=== PATIENT | female | born 1975 | race Caucasian/White ===

== ENCOUNTER 2021-09-13 10:36 | Inpatient (IN) ==
[2021-09-13 11:54] LABS: Basophils % 0.7 %; Eosinophils # 0.1 K/mcL (0.0-0.6); Hematocrit 45.6 % (35.3-44.9); Immature Granulocytes % 0.2 % (0-4); Lymphocytes # 1.5 K/mcL (0.6-4.6); Lymphocytes % 24.8 %; Mean Corpuscular HGB Conc 32.9 g/dL (31.6-35.5); Mean Corpuscular Volume 88.2 fL (83.0-100.0); Mean Platelet Volume 10.1 fL (9.4-12.4); Monocytes # 0.5 K/mcL (0.0-1.3); Platelet Count 224 K/mcL (140-400); Red Blood Count 5.17 M/mcL (3.82-4.97); Red Cell Distribution Width 12.5 % (11.5-14.5); Segmented Neutrophils % 65.3 %; White Blood Count 6.1 K/mcL (4.3-11.1)
[2021-09-13 12:00] LABS: Bilirubin,Urine Negative (Negative); Blood,Urine Negative (Negative); Clarity,Urine Clear (Clear); Color,Urine Colorless (Yellow); Glucose,Urine (UA) Normal (Normal); Ketones,Urine Negative (Negative); Leukocyte Esterase,Urine Negative (Negative); Nitrite,Urine Negative (Negative); Protein,Urine Negative (Neg-Trace); Specific Gravity,Urine 1.005 (1.010-1.025); Urobilinogen,Urine Normal (Normal)
[2021-09-13 12:02] LABS: Acetaminophen < 10 mcg/mL (10-20); Blood Urea Nitrogen 13 mg/dL (6-20); Calcium 9.3 mg/dL (8.6-10.3); Carbon Dioxide 29 mEq/L (23-29); Chloride 106 mEq/L (98-107); Ethanol < 10 mg/dL (Less than 10); Glucose 95 mg/dL (70-105); Osmolality,Calculated 288 (280-300); Potassium 4.5 mEq/L (3.5-5.1); Salicylate < 2.5 mg/dL (15.0-30.0); Sodium 139 mEq/L (136-145)
[2021-09-13 12:09] LABS: BUN/Creatinine Ratio 17 (6-26); eGFR For African Americans > 60 (> 60); eGFR For Non-African Americans > 60 (> 60)
[2021-09-13 12:11] LABS: Amphetamine Screen,Urine Negative ng/mL (Cutoff=1000); Barbiturate Screen,Urine Negative ng/mL (Cutoff=200); Benzodiazepines Screen,Urine Negative ng/mL (Cutoff=200); Cannabinoid Screen,Urine Positive ng/mL (Cutoff = 50); Cocaine Screen,Urine Negative ng/mL (Cutoff= 300); Opiate Screen,Urine Negative ng/mL (Cutoff=300); Phencyclidine Screen,Urine Negative ng/mL (Cutoff=25)
[2021-09-13 14:06] LABS: Influenza A PCR Negative (Negative); Influenza B PCR Negative (Negative); Resp. Syncytial Virus PCR Negative (Negative)
[2021-09-13] MEDS ORDERED: Acetaminophen 325 MG TABLET PO PRN (14:21)
[2021-09-13] MEDS ORDERED: haloperidoL 5 MG TABLET PO PRN (14:21)
[2021-09-13] MEDS ORDERED: *HR* LORazepam 2 MG/ML VIAL IM PRN (14:21)
[2021-09-13] MEDS ORDERED: *HR* LORazepam 1 MG TABLET PO PRN (14:21)
[2021-09-13] MEDS ORDERED: Ibuprofen 400 MG TABLET PO PRN (14:21)
[2021-09-13] MEDS ORDERED: Haloperidol Lactate 5 MG/ML VIAL IM PRN (14:21)
[2021-09-13 14:39] LABS: SARS-CoV-2 by PCR (In House) Negative (Negative)
[2021-09-13] MEDS: hydrOXYzine pamoate 25 MG CAPSULE PO PRN (19:55)
[2021-09-13] MEDS: traZODone 50 MG TABLET PO PRN (19:55)
[2021-09-14] MEDS: clonazePAM 0.5 MG TABLET PO PRN (08:49)
[2021-09-14] MEDS ORDERED: Mag Hydrox/Al Hydrox/Simeth 30 ML UDC PO PRN (11:15)
[2021-09-14] MEDS ORDERED: MOM Conc 10 ML UD.LIQ PO PRN (11:15)
[2021-09-14] MEDS: hydrOXYzine pamoate 25 MG CAPSULE PO PRN ×2 (12:30→20:40)
[2021-09-14] MEDS: traZODone 50 MG TABLET PO PRN (20:41)
[2021-09-15] MEDS: clonazePAM 0.5 MG TABLET PO PRN (08:22)
[2021-09-15 09:48] VITALS: BP 115/79; PULSE 72; TEMP 97.8; O2SAT 98
== END 2021-09-15 14:45 | disposition home or self-care (01) | DRG 885 ==
LOC: EMEROOARM 10:36 → 1ANU 15:30
PROVIDERS: ADMIT Psychiatry & Neurology Psychiatry; ATTEND Psychiatry & Neurology Psychiatry

== ENCOUNTER 2022-01-17 17:12 | Inpatient (IN) ==
[2022-01-17 17:55] LABS: Bilirubin,Urine Negative (Negative); Blood,Urine Negative (Negative); Clarity,Urine Clear (Clear); Color,Urine Colorless (Yellow); Glucose,Urine (UA) Normal (Normal); Ketones,Urine Negative (Negative); Leukocyte Esterase,Urine Negative (Negative); Nitrite,Urine Negative (Negative); Protein,Urine Negative (Neg-Trace); Specific Gravity,Urine 1.005 (1.010-1.025); Urobilinogen,Urine Normal (Normal)
[2022-01-17 18:00] LABS: Basophils % 0.7 %; Eosinophils # 0.1 K/mcL (0.0-0.6); Eosinophils % 1.6 %; Hemoglobin 14.8 g/dL (11.5-15.4); Immature Granulocytes % 0.2 % (0-4); Lymphocytes # 1.5 K/mcL (0.6-4.6); Lymphocytes % 23.8 %; Mean Corpuscular HGB Conc 33.6 g/dL (31.6-35.5); Mean Corpuscular Hemoglobin 30.5 pg (28.0-33.3); Mean Corpuscular Volume 90.5 fL (83.0-100.0); Mean Platelet Volume 10.1 fL (9.4-12.4); Monocytes # 0.5 K/mcL (0.0-1.3); Monocytes % 8.9 %; Platelet Count 240 K/mcL (140-400); Red Blood Count 4.86 M/mcL (3.82-4.97); Red Cell Distribution Width 12.3 % (11.5-14.5); Segmented Neutrophils % 64.8 %; White Blood Count 6.1 K/mcL (4.3-11.1)
[2022-01-17 18:02] LABS: Amphetamine Screen,Urine Negative ng/mL (Cutoff=1000); Barbiturate Screen,Urine Negative ng/mL (Cutoff=200); Benzodiazepines Screen,Urine Negative ng/mL (Cutoff=200); Cannabinoid Screen,Urine Positive ng/mL (Cutoff = 50); Cocaine Screen,Urine Negative ng/mL (Cutoff= 300); Opiate Screen,Urine Negative ng/mL (Cutoff=300); Phencyclidine Screen,Urine Negative ng/mL (Cutoff=25)
[2022-01-17 18:08] LABS: Acetaminophen < 10 mcg/mL (10-20); BUN/Creatinine Ratio 17 (6-26); Blood Urea Nitrogen 11 mg/dL (6-20); Calcium 8.9 mg/dL (8.6-10.3); Carbon Dioxide 28 mEq/L (23-29); Chloride 105 mEq/L (98-107); Estimated Average Glucose 80 mg/dl; Ethanol < 10 mg/dL (Less than 10); Glucose 88 mg/dL (70-105); Hemoglobin A1C 4.4 %; Osmolality,Calculated 285 (280-300); Potassium 3.8 mEq/L (3.5-5.1); Salicylate < 2.5 mg/dL (15.0-30.0); Sodium 138 mEq/L (136-145); eGFR For African Americans > 60 (> 60); eGFR For Non-African Americans > 60 (> 60)
[2022-01-17 22:25] LABS: Influenza A PCR Negative (Negative); Influenza B PCR Negative (Negative); Resp. Syncytial Virus PCR Negative (Negative)
[2022-01-17 22:51] LABS: SARS-CoV-2 by PCR (In House) Negative (Negative)
[2022-01-18] MEDS ORDERED: haloperidoL 5 MG TABLET PO PRN (00:01)
[2022-01-18] MEDS ORDERED: Acetaminophen 325 MG TABLET PO PRN (00:01)
[2022-01-18] MEDS ORDERED: Haloperidol Lactate 5 MG/ML VIAL IM PRN (00:01)
[2022-01-18] MEDS ORDERED: hydrOXYzine pamoate 25 MG CAPSULE PO PRN (00:01)
[2022-01-18] MEDS ORDERED: *HR* LORazepam 2 MG/ML VIAL IM PRN (00:01)
[2022-01-18] MEDS ORDERED: *HR* LORazepam 1 MG TABLET PO PRN (00:01)
[2022-01-18] MEDS ORDERED: traZODone 50 MG TABLET PO PRN (00:01)
[2022-01-18] MEDS ORDERED: MOM Conc 10 ML UD.LIQ PO PRN (08:06)
[2022-01-18] MEDS ORDERED: Mag Hydrox/Al Hydrox/Simeth 30 ML UDC PO PRN (08:06)
[2022-01-18] MEDS ORDERED: traZODone 50 MG TABLET PO SCH (21:00)
[2022-01-19 08:41] VITALS: BP 144/80; PULSE 84; TEMP 97.4; O2SAT 98
== END 2022-01-19 14:09 | disposition home or self-care (01) | DRG 885 ==
LOC: 1ANU 17:12 → EMEROOARM 17:12 → 1ANU 01-18 01:05
PROVIDERS: ADMIT Psychiatry & Neurology Psychiatry; ATTEND Psychiatry & Neurology Psychiatry

== ENCOUNTER 2022-06-13 11:04 | Inpatient (IN) ==
[2022-06-13 11:52] LABS: Basophils # 0.1 K/mcL (0.0-0.2); Basophils % 0.7 %; Eosinophils # 0.1 K/mcL (0.0-0.6); Eosinophils % 0.8 %; Hematocrit 40.2 % (35.3-44.9); Hemoglobin 13.8 g/dL (11.5-15.4); Immature Granulocytes % 0.3 % (0-4); Lymphocytes # 1.5 K/mcL (0.6-4.6); Lymphocytes % 17.1 %; Mean Corpuscular HGB Conc 34.3 g/dL (31.6-35.5); Mean Corpuscular Hemoglobin 29.9 pg (28.0-33.3); Mean Corpuscular Volume 87.2 fL (83.0-100.0); Mean Platelet Volume 9.8 fL (9.4-12.4); Monocytes # 0.6 K/mcL (0.0-1.3); Monocytes % 6.9 %; Neutrophils # 6.7 K/mcL (1.6-8.9); Platelet Count 239 K/mcL (140-400); Red Blood Count 4.61 M/mcL (3.82-4.97); Segmented Neutrophils % 74.2 %
[2022-06-13 12:02] LABS: Bilirubin,Urine Negative (Negative); Blood,Urine Negative (Negative); Clarity,Urine Clear (Clear); Color,Urine Colorless (Yellow); Glucose,Urine (UA) Normal (Normal); Ketones,Urine Negative (Negative); Leukocyte Esterase,Urine Negative (Negative); Nitrite,Urine Negative (Negative); PH,Urine 6.5 pH Units (5.0-8.0); Protein,Urine Negative (Neg-Trace); Specific Gravity,Urine 1.005 (1.010-1.025); Urobilinogen,Urine Normal (Normal)
[2022-06-13 12:11] LABS: Amphetamine Screen,Urine Negative ng/mL (Cutoff=1000); Barbiturate Screen,Urine Negative ng/mL (Cutoff=200); Benzodiazepines Screen,Urine Negative ng/mL (Cutoff=200); Cannabinoid Screen,Urine Positive ng/mL (Cutoff = 50); Cocaine Screen,Urine Negative ng/mL (Cutoff= 300); Opiate Screen,Urine Negative ng/mL (Cutoff=300); Phencyclidine Screen,Urine Negative ng/mL (Cutoff=25)
[2022-06-13 12:13] LABS: Acetaminophen < 10 mcg/mL (10-20); BUN/Creatinine Ratio 17 (6-26); Blood Urea Nitrogen 10 mg/dL (6-20); Calcium 8.7 mg/dL (8.6-10.3); Carbon Dioxide 26 mEq/L (23-29); Chloride 104 mEq/L (98-107); Chol/HDL Ratio 1.8 (0-4.9); Cholesterol 179 mg/dL (< 200); Ethanol < 10 mg/dL (Less than 10); Glucose 88 mg/dL (70-105); HDL Cholesterol 99 mg/dL (40-59); LDL Cholesterol,Calculated 70 mg/dL (< 100); Osmolality,Calculated 280 (280-300); Potassium 3.6 mEq/L (3.5-5.1); Salicylate < 2.5 mg/dL (15.0-30.0); Sodium 136 mEq/L (136-145); Triglycerides 50 mg/dL (< 150)
[2022-06-13 12:24] LABS: Estimated Average Glucose 88 mg/dl; Hemoglobin A1C 4.7 %
[2022-06-13] MEDS ORDERED: QUEtiapine Fumarate 25 MG TABLET PO PRN (13:46)
[2022-06-13] MEDS ORDERED: *HR* LORazepam 2 MG/ML VIAL IM PRN (13:46)
[2022-06-13] MEDS ORDERED: MOM Conc 10 ML UD.LIQ PO PRN (13:46)
[2022-06-13] MEDS ORDERED: Acetaminophen 325 MG TABLET PO PRN (13:46)
[2022-06-13] MEDS ORDERED: Mag Hydrox/Al Hydrox/Simeth 30 ML UDC PO PRN (13:46)
[2022-06-13] MEDS ORDERED: haloperidoL 5 MG TABLET PO PRN (13:46)
[2022-06-13] MEDS ORDERED: Haloperidol Lactate 5 MG/ML VIAL IM PRN (13:46)
[2022-06-13 14:47] LABS: Influenza A PCR Negative (Negative); Influenza B PCR Negative (Negative); Resp. Syncytial Virus PCR Negative (Negative)
[2022-06-13 14:53] LABS: SARS-CoV-2 by PCR (In House) Negative (Negative)
[2022-06-13] MEDS: hydrOXYzine pamoate 25 MG CAPSULE PO PRN (16:09)
[2022-06-13] MEDS: *HR* LORazepam 1 MG TABLET PO PRN (17:02)
[2022-06-13] MEDS: traZODone 50 MG TABLET PO SCH (21:58)
[2022-06-14] MEDS: hydrOXYzine pamoate 25 MG CAPSULE PO PRN ×2 (03:35→12:44)
[2022-06-14] MEDS: *HR* LORazepam 1 MG TABLET PO PRN (06:01)
[2022-06-14] MEDS: Multivit/Ca/Min/Fe/FA 1 TAB TABLET PO SCH (12:43)
[2022-06-14] MEDS: Lactobacillus 1 EACH CAP.SPRINK PO SCH (12:44)
[2022-06-14] MEDS ORDERED: BuPROPion XL (24 HR) 150 MG TABLET PO SCH (13:00)
[2022-06-14] MEDS: Thiamine (B-1) 100 MG TABLET PO SCH (13:23)
[2022-06-14] MEDS: Folic Acid 1 MG TABLET PO SCH (13:25)
[2022-06-14] MEDS ORDERED: ARIPiprazole 2 MG TABLET PO SCH (21:00)
[2022-06-14] MEDS: traZODone 50 MG TABLET PO SCH (21:21)
[2022-06-15] MEDS: hydrOXYzine pamoate 25 MG CAPSULE PO PRN ×2 (00:14→09:19)
[2022-06-15] MEDS ORDERED: traZODone 50 MG TABLET PO ONE (02:52)
[2022-06-15] MEDS: Thiamine (B-1) 100 MG TABLET PO SCH (09:19)
[2022-06-15] MEDS: Multivit/Ca/Min/Fe/FA 1 TAB TABLET PO SCH (09:20)
[2022-06-15] MEDS: Folic Acid 1 MG TABLET PO SCH (09:20)
[2022-06-15] MEDS: Lactobacillus 1 EACH CAP.SPRINK PO SCH (09:20)
[2022-06-15] MEDS ORDERED: *HR* LORazepam 1 MG TABLET PO PRN ×2 (10:37)
[2022-06-15] MEDS: *HR* LORazepam 1 MG TABLET PO PRN ×2 (11:03→23:33)
[2022-06-15] MEDS: traZODone 50 MG TABLET PO SCH (20:54)
[2022-06-15] MEDS ORDERED: ARIPiprazole 5 MG TABLET PO SCH (21:00)
[2022-06-15 21:04] VITALS: TEMP 98.1
[2022-06-15 23:30] VITALS: BP 163/122; PULSE 69; O2SAT 99
[2022-06-16] MEDS ORDERED: cloNIDine HCL 0.1 MG TABLET PO ONE
== END 2022-06-16 01:55 | disposition other institution (70) | DRG 885 ==
LOC: EMEROOARM 11:04 → 1ANU 15:30
PROVIDERS: ADMIT Psychiatry & Neurology Psychiatry; ATTEND Psychiatry & Neurology Psychiatry

== ENCOUNTER 2022-06-16 00:37 | Observation (INO) ==
[2022-06-16] MEDS ORDERED: Ondansetron ODT 4 MG TAB.RAPDIS SL PRN (02:34)
[2022-06-16] MEDS ORDERED: Melatonin 3 MG TABLET PO PRN (02:34)
[2022-06-16] MEDS ORDERED: Naloxone 0.4 MG/ML INJ IVP PRN (02:34)
[2022-06-16] MEDS ORDERED: *HR* LORazepam 1 MG TABLET PO PRN ×3 (03:14)
[2022-06-16 03:16] LABS: Basophils % 0.5 %; Eosinophils # 0.1 K/mcL (0.0-0.6); Eosinophils % 1.2 %; Hematocrit 42.6 % (35.3-44.9); Hemoglobin 14.6 g/dL (11.5-15.4); Immature Granulocytes % 0.3 % (0-4); Lymphocytes # 1.4 K/mcL (0.6-4.6); Lymphocytes % 18.3 %; Mean Corpuscular HGB Conc 34.3 g/dL (31.6-35.5); Mean Corpuscular Hemoglobin 29.7 pg (28.0-33.3); Mean Corpuscular Volume 86.8 fL (83.0-100.0); Mean Platelet Volume 10.3 fL (9.4-12.4); Monocytes # 0.7 K/mcL (0.0-1.3); Monocytes % 8.9 %; Neutrophils # 5.5 K/mcL (1.6-8.9); Platelet Count 246 K/mcL (140-400); Red Blood Count 4.91 M/mcL (3.82-4.97); Red Cell Distribution Width 12.6 % (11.5-14.5); Segmented Neutrophils % 70.8 %; White Blood Count 7.8 K/mcL (4.3-11.1)
[2022-06-16] MEDS ORDERED: hydrALAZINE 10 MG TABLET PO PRN (03:32)
[2022-06-16 03:46] LABS: Alanine Aminotransferase 15 Units/L (7-52); Albumin 3.9 g/dL (3.5-5.7); Albumin/Globulin Ratio 1.3 (1.1-2.2); Alkaline Phosphatase 40 Units/L (34-104); Aspartate Amino Transferase 16 Units/L (13-39); BUN/Creatinine Ratio 16 (6-26); Bilirubin,Total 0.6 mg/dL (0.3-1.0); Blood Urea Nitrogen 9 mg/dL (6-20); Calcium 9.4 mg/dL (8.6-10.3); Carbon Dioxide 24 mEq/L (23-29); Chloride 101 mEq/L (98-107); Glucose 108 mg/dL (70-105); Magnesium 1.9 mg/dL (1.6-2.6); Osmolality,Calculated 281 (280-300); Phosphorous 3.5 mg/dL (2.7-4.5); Potassium 3.2 mEq/L (3.5-5.1); Sodium 136 mEq/L (136-145); Total Protein 6.9 g/dL (6.4-8.9); Troponin I < 0.03 ng/mL (< 0.04)
[2022-06-16] MEDS: *HR* Enoxaparin 40 MG/0.4 ML SYRINGE SQ SCH (05:49)
[2022-06-16] MEDS: Folic Acid 1 MG TABLET PO SCH (09:41)
[2022-06-16] MEDS: Aspirin 81 MG TAB.CHEW PO SCH (09:41)
[2022-06-16] MEDS: BuPROPion XL (24 HR) 150 MG TABLET PO SCH (09:41)
[2022-06-16] MEDS: Thiamine (B-1) 100 MG TABLET PO SCH (09:42)
[2022-06-16] MEDS: carvediloL 6.25 MG TABLET PO SCH ×2 (09:44→16:52)
[2022-06-16 11:03] LABS: BUN/Creatinine Ratio 12 (6-26); Blood Urea Nitrogen 7 mg/dL (6-20); Calcium 9.5 mg/dL (8.6-10.3); Carbon Dioxide 28 mEq/L (23-29); Chloride 102 mEq/L (98-107); Glucose 146 mg/dL (70-105); Osmolality,Calculated 281 (280-300); Potassium 4.2 mEq/L (3.5-5.1); Sodium 135 mEq/L (136-145)
[2022-06-16] MEDS ORDERED: lisinopriL 20 MG TABLET PO SCH (16:30)
[2022-06-16] MEDS: lisinopriL 20 MG TABLET PO SCH (20:11)
[2022-06-16 20:30] LABS: Bilirubin,Urine Negative (Negative); Blood,Urine Negative (Negative); Clarity,Urine Clear (Clear); Color,Urine Light-Yellow (Yellow); Glucose,Urine (UA) Normal (Normal); Ketones,Urine 10 mg/dL (Negative); Leukocyte Esterase,Urine Negative (Negative); Nitrite,Urine Negative (Negative); Protein,Urine Negative (Neg-Trace); Specific Gravity,Urine 1.006 (1.010-1.025); Urobilinogen,Urine Normal (Normal)
[2022-06-16 20:39] LABS: Amphetamine Screen,Urine Negative ng/mL (Cutoff=1000); Barbiturate Screen,Urine Negative ng/mL (Cutoff=200); Benzodiazepines Screen,Urine Positive ng/mL (Cutoff=200); Cannabinoid Screen,Urine Positive ng/mL (Cutoff = 50); Cocaine Screen,Urine Negative ng/mL (Cutoff= 300); Opiate Screen,Urine Negative ng/mL (Cutoff=300); Phencyclidine Screen,Urine Negative ng/mL (Cutoff=25)
[2022-06-16] MEDS ORDERED: traZODone 50 MG TABLET PO SCH (21:00)
[2022-06-16] MEDS ORDERED: QUEtiapine Fumarate 25 MG TABLET PO SCH (21:00)
[2022-06-16] MEDS ORDERED: ARIPiprazole 5 MG TABLET PO SCH (21:00)
[2022-06-17 04:01] VITALS: TEMP 97.9
[2022-06-17] MEDS: *HR* Enoxaparin 40 MG/0.4 ML SYRINGE SQ SCH (04:54)
[2022-06-17 07:50] VITALS: BP 158/95; O2SAT 99
[2022-06-17] MEDS: Folic Acid 1 MG TABLET PO SCH (08:01)
[2022-06-17] MEDS: Aspirin 81 MG TAB.CHEW PO SCH (08:01)
[2022-06-17] MEDS: lisinopriL 20 MG TABLET PO SCH (08:02)
[2022-06-17] MEDS: carvediloL 6.25 MG TABLET PO SCH (08:02)
[2022-06-17] MEDS: Thiamine (B-1) 100 MG TABLET PO SCH (08:02)
[2022-06-17] MEDS: BuPROPion XL (24 HR) 150 MG TABLET PO SCH (08:02)
[2022-06-17] MEDS ORDERED: lisinopriL 20 MG TABLET PO SCH (09:00)
[2022-06-17 09:39] VITALS: PULSE 93
== END 2022-06-17 12:03 | disposition home or self-care (01) ==
LOC: SUATTDRO 02:12 → INTOOBSV 02:12 → 2NNU 02:12
PROVIDERS: ADMIT Internal Medicine; ATTEND Student in an Organized Health Care Education/Training Program